=== PATIENT | male | born 1960 | race American Indian/Alaskan Native ===

== ENCOUNTER 2020-02-03 13:36 | Outpatient (CLI) | payer BC ==
--- NOTE | 2020-02-03 18:21 | Cat Scan Report ---
CT LUMBAR SPINE: 02/03/2020 INDICATION / CLINICAL INFORMATION: LOW BACK PAIN. COMPARISON: None available. FINDINGS: CT images of the lumbar spine were obtained. Images are evaluated in the axial, coronal, and sagittal planes. There is no evidence of acute abnormality. Vertebral body height and alignment is preserved. Multile zev degenerative changes are noted. LEVEL BY LEVEL ANALYSIS: L5-S1: Mild disc bulging and prominent bilateral facet degenerative changes. L4-5: Prominent disc space narrowing and degenerative endplate irregularity associated with disc bulg ing and moderate facet degenerative changes. Moderate canal narrowing is present here. L3-4: Moderate diffuse disc bulging and facet degenerative changes. L2-3: Mild diffuse disc bulging. L1-2: Unremarkable. PARASPINAL STRUCTURES: Unremarkable. IMPRESSION: Multilevel degenerative disc and facet changes. No acute abnormality. All CT scans at this location are performed using dose reduction to ALARA by means of automated expos ure control. Signer Name: Yehuda Morgan MD Signed: 02/03/2020 6:16 PM Workstation Name: [id number]
== END 2020-02-03 13:37 | disposition home or self-care (01) ==
LOC: CT 13:36
PROVIDERS: ATTEND Orthopaedic Surgery
DX: M51.26 Other intervertebral disc displacement, lumbar region (principal); M48.061 Spinal stenosis, lumbar region without neurogenic claudication
CPT/HCPCS: 72131